=== PATIENT | male | born 1980 | race Two or more races ===

== ENCOUNTER 2017-03-07 07:22 | Emergency (ER) | payer OTHER ==
[~2017-03-07] VITALS: Ht 170.2 cm; Wt 97.5 kg
[2017-03-07] MEDS ORDERED: IV NORMAL SALINE 1,000ML 1,000 ML IV SCH (07:49)
--- NOTE | 2017-03-07 07:52 | PHYS DOC ---
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 Pt states RLQ abdominal pain began suddenly last night approximately 8pm. He states he had several episodes of intermittent severe sharp/stabby RLQ pains at times seeming to radiate to his right testicle/groin. Urine slightly darker than normal, no BM since yesterday. Pt has not eaten today, no appetite. No nausea/vomitting/diarrhea/travel/bad food exposure/fever/chills/myalgias. 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 Timing/Duration: 24 hours Severity: severe Modifying Factors: worse with movement, improves with rest Associated Symptoms: loss of appetite, malaise, other Allergies: Coded Allergies: No Known Drug Allergies (Unverified , 03/07/17) Past Medical History Medical History: other (NIDA) Surgical History: other (L Knee) Social History Smoker: non-smoker Alcohol: none Drugs: none Review of Systems Constitutional: denies chills, denies fever, malaise Respiratory: denies cough, denies shortness of breath Cardiovascular: denies chest pain, denies palpitations, denies syncope Gastrointestinal: abdominal pain, denies diarrhea, denies nausea, denies vomiting Genitourinary: see HPI, denies hematuria Musculoskeletal: denies joint swelling, denies neck pain Psychiatric/Neurological: denies headache, denies numbness, denies paresthesia Hematologic/Lymphatic: denies blood clots, denies easy bleeding, denies easy bruising Physical Exam General Appearance: WD/WN, mild distress Eyes: bilateral eye normal inspection, bilateral eye PERRL, bilateral eye EOMI Ear, Nose, Throat: hearing grossly normal, normal ENT inspection Neck: non-tender, supple Respiratory: normal breath sounds, no respiratory distress Cardiovascular: normal peripheral pulses, regular rate, rhythm Gastrointestinal: soft (ND, BS diminished, RLQ/McBurney TTP no r/g/mass, no organomegaly) Rectal: deferred Back: no vertebral tenderness, CVA tenderness (R) Extremities: non-tender, normal inspection Neurologic/Psychiatric: client development consultant II-XII nml as tested, no motor/sensory deficits, alert, normal mood/affect, oriented x 3 Skin: normal color, warm/dry Orders, Labs, Meds PATIENT: UDAY LAFLEUR ACCOUNT: [id number] : 1980 LOCATION: ER AGE: 36 SEX: M EXAM STATUS: REG ER ORD. PHYSICIAN: FRANKO RIOS DO REASON: RLQ Abd Pain appy vs less likely stone PROCEDURE: CT ABDOMEN PELVIS WO CONTRAST Exam performed: CT scan of the abdomen and pelvis without contrast. Clinical Indication: Right flank pain. Date of Service: 03/07/17 no priors Technique: Contiguous helical acquisitions are obtained through the abdomen and pelvis without IV contrast. Sagittal and coronal reformatted images are obtained and reviewed. CT abdomen and pelvis findings: There is a 2.8 mm calculus in the right mid to lower third of the ureter causing mild proximal hydroureteronephrosis. There is a 3.7 mm nonobstructing calculus in the right superior renal pole. Visualized appendix is normal. The lung bases are essentially clear. Visualized heart is normal. Lack of IV contrast limits evaluation of abdominal viscera, however the liver, gallbladder, spleen and pancreas are normal. Both adrenal glands and bilateral kidneys are normal in size without hydronephrosis or nephrolithiasis. Aorta is normal in caliber without aneurysm. The small and large bowel loops are nondilated and unremarkable. Distal ureters are nondilated. Urinary bladder is decompressed and thick walled. [Prostate gland, seminal vesicles and rectum appear normal.] No free or focal fluid collections are identified. Impression: 2.8 mm calculus in the right mid to distal ureter causing mild proximal obstructive changes. Nonobstructing 3.7 mm calculus in the right superior renal pole. Appendix is normal. PQRS Compliance Statement: One or more of the following individualized dose reduction techniques were utilized for this examination: 1. Automated exposure control 2. Adjustment of the mA and/or kV according to patient size 3. 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 He expressed agreement/understanding with treatment plan. Departure Time of Disposition: 08:53 Disposition: 01 HOME, SELF-CARE Diagnosis: 2.8mm R ureterolithiasis Condition: GOOD Patient Instructions: Kidney Stones, [id number] Additional Instructions: Off work thru 03/10. Aggressive hydration with gatorade, water. OTC ibuprofen for baseline pain. Rx: percocet 7.5mg #30, zofran odt, flomax Take meds with food. You will need to follow up with a urologist. Follow up on Post for referral. Follow up on Post Friday. Return to ED with new or changing symptoms. FRANKO RIOS DO March 07, 2017 07:52
[2017-03-07] MEDS ORDERED: cefTRIAXone SODIUM 1 GM VIAL IV ONE (07:59)
[2017-03-07] MEDS ORDERED: IV NORMAL SALINE 50ML 50 ML ONE (07:59)
[2017-03-07] MEDS ORDERED: fentaNYL PF 100 MCG/2 ML VIAL IV PRN (08:00)
[2017-03-07] MEDS ORDERED: ONDANSETRON PF 4 MG/2 ML VIAL. IV ONE (08:00)
[2017-03-07 08:11] LABS: BASO # 0.1 x10^3/uL (0.0-0.2); BASO % 1 % (0-3); EOS # 0.2 x10^3/uL (0.0-0.7); EOS % 3 % (0-3); HEMATOCRIT 43.3 % (39.0-53.0); HEMOGLOBIN 15.2 g/dL (13.0-17.5); LYMPH # 1.3 x10^3/uL (1.0-4.8); LYMPH % 19 % (24-48); MEAN CORPUSCULAR HEMOGLOBIN 30 pg (25-35); MEAN CORPUSCULAR HGB CONC 35 g/dL (31-37); MEAN CORPUSCULAR VOLUME 86 fL (79-100); MONO # 0.6 x10^3/uL (0.0-1.1); MONO % 9 % (0-9); NEUT # 4.6 x10^3uL (1.8-7.7); NEUT % 68 % (31-73); PLATELET COUNT 284 x10^3/uL (140-400); RED BLOOD COUNT 5.01 x10^6/uL (4.30-5.70); RED CELL DISTRIBUTION WIDTH 12.8 % (11.5-14.5); WHITE BLOOD COUNT 6.8 x10^3/uL (4.0-11.0)
[2017-03-07] MEDS ORDERED: KETOROLAC 30 MG/ML VIAL. IV ONE (08:20)
[2017-03-07 08:22] LABS: ALBUMIN 4.3 g/dL (3.4-5.0); ALBUMIN/GLOBULIN RATIO 1.3 (1.0-1.7); CREATININE 1.2 mg/dL (0.7-1.3); GFR 67.8; POTASSIUM 3.9 mmol/L (3.5-5.1); TOTAL BILIRUBIN 0.9 mg/dL (0.2-1.0); TOTAL PROTEIN 7.6 g/dL (6.4-8.2)
[2017-03-07 08:27] LABS: BACTERIA,URINE 0 /HPF (0-FEW); BILIRUBIN,URINE NEG (NEG); CLARITY,URINE CLEAR; COLOR,URINE YELLOW; GLUCOSE,URINE NEG (NEG); NITRITE,URINE NEG (NEG); SQUAMOUS EPITHELIAL CELL,UR OCC /LPF; UROBILINOGEN,URINE 0.2 mg/dL (0.2 mg/dL); WBC,URINE OCC /HPF (0-4)
--- NOTE | 2017-03-07 08:40 | RAD ---
Exam performed: CT scan of the abdomen and pelvis without contrast. Clinical Indication: Right flank pain. Date of Service: 03/07/17 no priors Technique: Contiguous helical acquisitions are obtained through the abdomen and pelvis without IV contrast. Sagittal and coronal reformatted images are obtained and reviewed. CT abdomen and pelvis findings: There is a 2.8 mm calculus in the right mid to lower third of the ureter causing mild proximal hydroureteronephrosis. There is a 3.7 mm nonobstructing calculus in the right superior renal pole. Visualized appendix is normal. The lung bases are essentially clear. Visualized heart is normal. Lack of IV contrast limits evaluation of abdominal viscera, however the liver, gallbladder, spleen and pancreas are normal. Both adrenal glands and bilateral kidneys are normal in size without hydronephrosis or nephrolithiasis. Aorta is normal in caliber without aneurysm. The small and large bowel loops are nondilated and unremarkable. Distal ureters are nondilated. Urinary bladder is decompressed and thick walled. [Prostate gland, seminal vesicles and rectum appear normal.] No free or focal fluid collections are identified. Impression: 2.8 mm calculus in the right mid to distal ureter causing mild proximal obstructive changes. Nonobstructing 3.7 mm calculus in the right superior renal pole. Appendix is normal. PQRS Compliance Statement: One or more of the following individualized dose reduction techniques were utilized for this examination: 1. Automated exposure control 2. Adjustment of the mA and/or kV according to patient size 3. Use of iterative reconstruction technique
[2017-03-07] MEDS ORDERED: ONDA4TAB10 PO (08:52)
[2017-03-07] MEDS ORDERED: OXYC-327 PO (08:52)
[2017-03-07] MEDS ORDERED: TAMS0.4C97 PO (08:52)
[2017-03-07 09:07] VITALS: BP 136/81
== END 2017-03-07 09:08 | disposition home or self-care (01) ==
LOC: ER 07:22
DX: N20.1 Calculus of ureter (principal); G47.33 Obstructive sleep apnea (adult) (pediatric)
CPT/HCPCS: 36415; 74176; 80053; 81001; 83690; 85027; 96365; 96375; 99285; J0696; J1885; J2405; J3010; J7030

== ENCOUNTER 2021-04-22 10:23 | Emergency (ER) | payer OTHER ==
[~2021-04-22] VITALS: Ht 170.2 cm; Wt 114.0 kg
[~2021-04-22 10:23] MED LIST: ONDA4TAB10 PO; OXYC1TAB19 PO; TAMS0.4C97 PO
[2021-04-22] MEDS ORDERED: HYDROcodone/APAP 7.5/325MG 1 TAB TABLET PO ONE (10:45)
[2021-04-22] MEDS ORDERED: LIDOCAINE 2% 20 ML VIAL. IJ ONE (10:45)
--- NOTE | 2021-04-22 10:52 | PHYS DOC ---
Past History Past Medical History: No Pertinent History Past Surgical History: Knee Replacement, Other Alcohol Use: None Drug Use: None Adult General Chief Complaint Chief Complaint: LACERATION/AVULSION HPI HPI Patient is a 40-year-old male presenting for left hand laceration. Reports he was chopping wood with an ax in preparation of smoking meat later today, was holding what in his left hand and accidentally struck the distal tips of his left second and third digits with the ax. Patient immediately put pressure on fingertips that controlled all bleeding and presented to our ER for evaluation. On arrival, he complains of focal pain to distal tips at sites of laceration, he denies any obvious bony involvement, no changes in motor or sensory or neurovascular function, denies being on any blood thinners. His tetanus is up-to-date Review of Systems Review of Systems Fourteen body systems of review of systems have been reviewed. See HPI for pertinent positives and negative responses, other mas all other systems are negative, non-pertinent or non-contributory Current Medications Current Medications Current Medications Medications (Trade) Dose Ordered Sig/Anjelica Start Time Stop Time Status Last Admin Dose Admin Acetaminophen/ Hydrocodone Bitart (Lortab 7.5/325) 1 tab 1X ONCE 04/22/21 10:45 04/22/21 10:46 DC 04/22/21 10:47 1 TAB Lidocaine HCl 20 ml 1X ONCE 04/22/21 10:45 04/22/21 10:46 DC 04/22/21 10:45 20 ML Allergies Allergies Allergies Coded Allergies Type Severity Reaction Last Updated Verified No Known Drug Allergies 04/22/21 No Physical Exam Physical Exam Constitutional: Well developed, well nourished, no acute distress, non-toxic appearance. HENT: Normocephalic, atraumatic, bilateral external ears normal, oropharynx moist, no oral exudates, nose normal. Eyes: PERRLA, EOMI, conjunctiva normal, no discharge. Neck: Normal range of motion, no tenderness, supple, no stridor. Cardiovascular: Heart rate regular per monitor Lungs & Thorax: No respiratory distress or accessory muscle use, bilateral chest rise Abdomen: Abdomen soft, non-tender, bowel sounds present in all quadrants, no guarding or rebound, nonacute abdomen. Skin: Warm, dry, no erythema, no rash. Back: No tenderness, no CVA tenderness. Extremities: No cyanosis, no clubbing, ROM intact, no edema. There is tenderness over the distal aspect of left second and third distal fingertips with nailbed involvement. Horizontal laceration suffered to distal tip of left second finger 7 mm in length. Horizontal laceration suffered to distal tip of left third finger 1.1 cm in length both involving nailbed matrix Neurologic: Alert and oriented X 3, grossly normal motor & sensory function, no focal deficits noted. Psychologic: Affect normal, judgement normal, mood normal. Current Patient Data Vital Signs Vital Signs Date Time Temp Pulse Resp B/P (MAP) Pulse Ox O2 Delivery O2 Flow Rate FiO2 04/22/21 10:47 18 99 EKG EKG [] Radiology/Procedures Radiology/Procedures INDICATION: Reason: laceration with ax / Spl. Instructions: / History: COMPARISON: None. IMPRESSION: Right hand: 3 views obtained. Mild positive ulnar variance with some proximal migration of the carpal row. Lucency and sclerosis at distal ulna which could be from degenerative changes with subchondral sclerosis and cyst. Displaced fracture of the distal phalanx of the second digit. Electronically signed by: Odilon Mayer MD (04/22/2021 11:05 AM) DESKTOP- [id number] Heart Score C/O Chest Pain: No Risk Factors: Risk Factors: DM, Current or recent (<one month) smoker, HTN, HLP, family history of CAD, obesity. Risk Scores: Risk Factors: DM, Current or recent (<one month) smoker, HTN, HLP, family history of CAD, obesity. Course & Med Decision Making Course & Med Decision Making ABCs unremarkable. I disclosed entirety of ER findings and discussed most likely diagnosis of finger laceration with open distal tuft fracture that is nonemergent/surgical in nature. Distal portion of left second digit repaired with x4 nonabsorbable sutures. Distal portion of left third digit left to heal by secondary intention given appearance of laceration and no viable skin to resuture to remaining finger. Patient's left upper extremity remained intact to motor, sensory and neurologic function. Given open nature of tuft fracture, joint decision made to start Keflex antibiotic which patient took while in ER and tolerated. In addition, due to nature of accident, joint decision was made to discharge home with instructions for Tylenol and ibuprofen for pain as needed and short-term prescription of Seymour provided for severe pain purposes. Ultimately, I stressed need for close outpatient with primary care physician and orthopedic physicians for follow-up to review today's ER visit. Strict return precautions were also discussed at length with good understanding by patient. Patient voiced understanding and agreement with the plan. Patient knows to come back for repeat evaluation if concerning signs or symptoms present prior to outp atient follow-up. Hemodynamically stable, ambulatory and well-appearing at time of disposition. Dragon Disclaimer Dragon Disclaimer This electronic medical record was generated, in whole or in part, using a voice recognition dictation system. Laceration Repair Lac Repair Indication: Finger laceration Procedure: The patient was placed in the appropriate position and anesthesia around the base of the left second and third digit inserted. 1 mL 1% lidocaine was injected into 3 separate sites of each finger, 1 mL at 2:00, 1 mL at 10:00 positions and additional 1 mL at ventral base of digit that resulted in complete digital block of each finger. A total of 6 mL 1% lidocaine used. The area was then cleansed with wound solution and evaluated for foreign bodies without any obvious foreign bodies present. The laceration was then sutured closed utilizing a total of x4 simple interrupted nonabsorbable sutures. Both fingers were then cleaned again and wounds dressed with sterile dressing placed on each respective finger Total repaired wound length: 1.2 cm on distal second digit of finger Other Items: X2 finger tourniquets The patient tolerated the procedure well without any observed nor reported compl ications Departure Departure: Impression: Primary Impression: Open fracture of tuft of distal phalanx of finger Additional Impression: Traumatic amputation of finger tip Disposition: HOME / SELF CARE / HOMELESS Condition: IMPROVED Referrals: MITCHELL HERNÁNDEZ MD (PCP) Patient Instructions: Fingertip Laceration, Laceration Care, Adult Additional Instructions: You were seen for a laceration. Keep the area clean and dry. You should return to the ED or your PCP office to get your fingers reevaluated and sutures removed in 7 to 10 days. As disclosed, you need to have your hand reevaluated by primary care physician as there is likely need for outpatient orthopedic hand surgeon consultation. As disclosed, there is no need for emergent surgery but further intervention is possible. Return to the ED immediately if you develop any signs of infection like increased pain, redness, fever, or purulent (pus) drainage. Do not take baths, submerge the wound, or use a hot tub until your stitches are removed and the wound is healed. Scripts Hydrocodone/Ibuprofen (HYDROCODONE-IBUPROFEN 7.5-200 ) 1 Each Tablet 1 TAB PO PRN Q6HRS PRN for PAIN, #10 TAB 0 Refills Prov: AMBER SAWYER DO 04/22/21 Cephalexin (KEFLEX) 750 Mg Capsule 1 CAP PO TID for SKIN INFECTION for 10 Days, #30 CAP 0 Refills Prov: AMBER SAWYER DO 04/22/21 Problem Qualifiers AMBER SAWYER DO Apr 22, 2021 10:52
--- NOTE | 2021-04-22 11:08 | RAD ---
INDICATION: Reason: laceration with ax / Spl. Instructions: / History: COMPARISON: None. IMPRESSION: Right hand: 3 views obtained. Mild positive ulnar variance with some proximal migration of the carpal row. Lucency and sclerosis at distal ulna which could be from degenerative changes with subchondral sclerosis and cyst. Displaced fracture of the distal phalanx of the second digit. Electronically signed by: Odilon Mayer MD (04/22/2021 11:05 AM) DESKTOP-[id number]
[2021-04-22] MEDS ORDERED: GELATIN SPONGE SIZE 12-7MM SPONGE. ONE (11:11)
[2021-04-22] MEDS ORDERED: CEPHALEXIN 250 MG CAPSULE PO ONE (11:30)
[2021-04-22] MEDS ORDERED: CEPH750C9 PO (12:04)
[2021-04-22] MEDS ORDERED: HYDR-1179 PO (12:04)
[2021-04-22 12:25] VITALS: BP 132/78
== END 2021-04-22 12:30 | disposition home or self-care (01) ==
LOC: ER 10:23
DX: S62.631B Displaced fracture of distal phalanx of left index finger, initial encounter for open fracture (principal); W27.0XXA Contact with workbench tool, initial encounter; Y93.89 Activity, other specified; Y92.89 Other specified places as the place of occurrence of the external cause; Y99.8 Other external cause status
CPT/HCPCS: 12001; 73130; 99283; J2001